=== PATIENT | female | born 1980 | race Caucasian/White ===

== ENCOUNTER 2025-06-22 08:57 | Day surgery (SDC) | payer BC ==
[2025-06-22] MEDS ORDERED: Heparin 5,000 UNITS/ML VIAL ONE (09:37)
[2025-06-22] MEDS ORDERED: CEFAZOLIN 2 GM VIAL ONE (09:37)
[2025-06-22] MEDS ORDERED: Tranexamic Acid 1,000 MG/10 ML VIAL ONE (09:37)
[2025-06-22] MEDS ORDERED: Lidocaine 1% PF 5 ML VIAL ONE (10:53)
[2025-06-22] MEDS ORDERED: fentaNYL PF 100 MCG/2 ML SYRINGE ONE (10:53)
[2025-06-22] MEDS ORDERED: PROPOFOL 20 ML ONE (10:53)
[2025-06-22] MEDS ORDERED: Bupivacaine 0.25% HCL 30 ML VIAL ONE (11:13)
[2025-06-22 11:57] LABS: BHCG - Serum Negative (NEGATIVE); Pregs Control Background? CLEAR/WHITE (CLR/WHITE); Pregs Control Bar Appear? YES (CONTROL BAR)
[2025-06-22] MEDS ORDERED: HYDROmorphone 2 MG/ML VIAL ONE (12:06)
[2025-06-22] MEDS ORDERED: PHENYLEPHRINE-NS 100 MCG/ML 10 ML SYRINGE ONE ×2 (12:20→14:08)
[2025-06-22] MEDS ORDERED: HYDROmorphone 0.5 MG/0.5 ML SYR SLOW IVP PRN (16:17)
== END 2025-06-22 18:10 | disposition home or self-care (01) ==
LOC: SDC 08:57
PROVIDERS: ATTEND Plastic Surgery
PROC: 0HBV0ZZ Excision of Bilateral Breast, Open Approach (ICD-10-PCS; principal; 2025-06-22)
DX: N62 Hypertrophy of breast (principal); Z90.49 Acquired absence of other specified parts of digestive tract
CPT/HCPCS: 84703; 88305; J0169; J0665; J1171; J1580; J1644; J2250; J2704; J3373